=== PATIENT | male | born 1960 | race Two or more races ===

== ENCOUNTER 2025-05-02 16:20 | Emergency (ER) | payer OTHER ==
[~2025-05-02] VITALS: Ht 175.3 cm; Wt 76.0 kg
[2025-05-02 16:24] VITALS: O2SAT 99
[2025-05-02 17:08] LABS: HEMATOCRIT. 31.3 % (42.0-52.0); HEMOGLOBIN. 10.5 g/dL (14.0-18.0); MEAN PLATELET VOLUME 9.1 fl (7.4-10.4); PLATELET 107 x1000/uL (130-400); RED BLOOD CELL COUNT 3.50 mill/uL (4.7-6.1); RED CELL DISTRIBUTION WIDTH 18.1 % (11.6-14.6)
[2025-05-02 17:20] LABS: CREATININE 0.7 mg/dL (0.6-1.3)
[2025-05-02 17:21] LABS: TROPONIN I HIGH SENSITIVITY 36 ng/L (3.0-53); UREA NITROGEN BLOOD 16 mg/dL (9-23)
[2025-05-02 17:22] LABS: ASPARTATE AMINOTRANSFERASE 44 IU/L (<34)
[2025-05-02 17:23] LABS: BILIRUBIN DIRECT 0.2 mg/dL (<=3.0); BILIRUBIN TOTAL 0.5 mg/dL (0.1-1.0); PROTEIN TOTAL 4.9 g/dL (6.0-8.3)
[2025-05-02 17:33] LABS: LYMPHOCYTES % MANUAL 6.0 % (20.0-50.0); MONOCYTES % MANUAL 1.0 % (2.0-8.0); NEUTROPHILS % MANUAL 93.0 % (45.0-75.0); PLATELET ESTIMATE DECREASED
[2025-05-02] MEDS: LIDOCAINE HCL 1% 20ML VIAL INFIL ONE (18:42)
[2025-05-02 20:43] VITALS: BP 104/73; PULSE 71; RESP 13; TEMP 37.1; O2SAT 100
== END 2025-05-02 20:56 | disposition short-term general hospital (02) ==
LOC: ER 16:20
DX: S01.81XA Laceration without foreign body of other part of head, initial encounter (principal); R53.1 Weakness; C25.9 Malignant neoplasm of pancreas, unspecified; I10 Essential (primary) hypertension; R06.02 Shortness of breath; X58.XXXA Exposure to other specified factors, initial encounter; Y93.89 Activity, other specified; Y92.89 Other specified places as the place of occurrence of the external cause; Y99.8 Other external cause status
CPT/HCPCS: 99285; 70450; 71045; 80076; 80048; 83880; 83735; 85025; 84484; 36415; 72125; 12011; 93005; J2003